=== PATIENT | male | born 1960 | race Caucasian/White ===

== ENCOUNTER 2017-11-07 02:28 | Emergency (ER) | payer BC, OTHER ==
[~2017-11-07] VITALS: Ht 177.8 cm; Wt 60.8 kg
[2017-11-07] MEDS ORDERED: IBUPROFEN 600 MG TAB PO STA (02:47)
[2017-11-07] MEDS ORDERED: ACETAMINOPHEN 325 MG TAB PO ONE (03:00)
--- NOTE | 2017-11-07 03:24 | Diagnostic Imaging Report ---
Exam: Left forearm and left humerus, 2 views each AP and lateral Indication: Left arm pain, pinned by a bull against metal gate Comparison: None Findings: The bones are well mineralized. No fractures, lytic or blastic lesions. No radiopaque foreign bodies. Impression: No left forearm or humerus fracture. Signed by: Dr. Gabbi Griggs M.D. on 11/07/2017 3:21 AM
[2017-11-07 03:38] VITALS: BP 118/69
== END 2017-11-07 03:40 | disposition home or self-care (01) ==
LOC: FSED 02:28
DX: S50.12XA Contusion of left forearm, initial encounter (principal); W55.22XA Struck by cow, initial encounter; Y99.0 Civilian activity done for income or pay
CPT/HCPCS: 99283

== ENCOUNTER 2022-07-23 15:38 | Emergency (ER) | payer SELFPAY ==
[~2022-07-23] VITALS: Ht 175.3 cm; Wt 60.8 kg
[2022-07-23 15:55] VITALS: O2SAT 97
[2022-07-23] MEDS ORDERED: TOBRAMYCIN SULFA5 ML OS (16:14)
== END 2022-07-23 16:29 | disposition home or self-care (01) ==
LOC: FSED 15:48
DX: H10.89 Other conjunctivitis (principal); I67.1 Cerebral aneurysm, nonruptured; F17.210 Nicotine dependence, cigarettes, uncomplicated
CPT/HCPCS: 99282